=== PATIENT | male | born 1960 | race Caucasian/White ===

== ENCOUNTER → 2017-04-28 | Outpatient (CLI) | payer OTHER | LOC: COL.RAD 07:30 | DX: M47.27 Other spondylosis with radiculopathy, lumbosacral region (principal); M46.1 Sacroiliitis, not elsewhere classified; Z98.1 Arthrodesis status ==

== ENCOUNTER 2023-10-22 07:30 | Day surgery (SDC) | payer MEDICARE ==
[2023-10-22] VITALS (14 sets, daily range): BP systolic 96–157; BP diastolic 58–86; PULSE 62–83; TEMP 97.2–98.3
[~2023-10-22] VITALS: Ht 170.2 cm; Wt 100.8 kg
[2023-10-22 06:43] LABS: HEMATOCRIT 43.7 % (42.0-52.0); HEMOGLOBIN 14.6 g/dl (13.5-18.0); MEAN CELL VOLUME 95 fl (80.0-100.0); MEAN CORPUSCULAR HEMOGLOBIN 32 pg (27-31); MEAN CORPUSCULAR HGB CONC 33 g/dl (33.0-37.0); MEAN PLATELET VOLUME 10.7 fl (7.4-10.4); PLATELET COUNT 305 K/mm3 (130-400); RED BLOOD COUNT 4.62 M/mm3 (4.20-5.60); REDCELL DISTRIBUTION WIDTH-CV 13.7 % (11.5-14.5)
[2023-10-22 07:13] LABS: ALBUMIN 3.8 g/dL (3.4-4.8); BILIRUBIN,TOTAL 0.6 mg/dL (0.2-1.2); CALCIUM 9.7 mg/dL (8.4-10.2); CREATININE, serum 1.24 mg/dL (0.72-1.25); POTASSIUM 4.3 mEq/L (3.5-4.5); TOTAL PROTEIN 6.9 g/dl (6.2-8.1)
[~2023-10-22 07:30] MED LIST: AMBIEN 10MG10 MG PO; AMITRIPTYLINE H50 M1 PO; HYDROmorphone 1 MG/1 ML SYRINGE [PACU/SDC ONLY] IV PRN; IMDUR 30MG30 MG/TAB PO; LR 1,000 ML IV SCH; Meperidine 50 MG/ML 1 ML VIAL IV PRN; NEURONTIN600 MG/TAB PO; NS 10 ML IV ONE; Ondansetron 4 MG/2 ML VIAL IV PRN; Ondansetron 4 MG/2 ML VIAL ONE; PLAVIX 75MG TAB75 MG PO; TOPROL XL 25MG25 MG PO; ZANAFLEX 4MG TAB4 MG PO; dexAMETHasone 10 MG/ML VIAL ONE; droPERidol 2.5 MG/ML 2 ML VIAL IV PRN; fentaNYL 50 MCG/ML 1 ML SYRINGE/VIAL [PACU/SDC ONLY] IV PRN; fentaNYL 50 MCG/ML 2 ML VIAL ONE; hydrALAZINE 20 MG/ML 1 ML VIAL IV PRN
[2023-10-22] MEDS ORDERED: Iohexol 300 - 10 ML VIAL URETER-B ONE (07:40)
[2023-10-22] MEDS ORDERED: Naloxone 0.4 MG/ML VIAL IV PRN (07:45)
[2023-10-22] MEDS ORDERED: Magnes Hydrox (MOM) 80 MG/ML 30 ML CUP PO PRN (07:45)
[2023-10-22] MEDS ORDERED: NS Irrig Soln 3000 ML SOLN IR PRN (07:45)
[2023-10-22] MEDS ORDERED: Ondansetron 4 MG/2 ML VIAL IV PRN (07:45)
[2023-10-22] MEDS ORDERED: Hyoscyamine 0.125 MG Sublingual TAB SL PRN (07:45)
[2023-10-22] MEDS ORDERED: Rocuronium 50 MG/5 ML Multi-Dose VIAL ONE (07:49)
[2023-10-22] MEDS ORDERED: Lidocaine 2% (20 MG/ML) 20 ML UROJET UR ONE (08:10)
[2023-10-22] MEDS ORDERED: Docusate Sodium 100 MG CAP PO SCH (09:00)
[2023-10-22] MEDS ORDERED: 1/2 NS & 20 mEq KCl 1,000 ML IV SCH (09:00)
[2023-10-22] MEDS ORDERED: Isosorbide Mononitrate CR (24-HR) 30 MG TAB PO SCH (09:00)
[2023-10-22] MEDS ORDERED: tiZANidine 4 MG TAB PO SCH ×3 (09:00→14:45)
--- NOTE | 2023-10-22 09:31 | NUR ---
PT TO ROOM 329 FOLLOWING TURBT PROCEDURE. VSS. ORIENTED TO ROOM AND CALL LIGHT SYSTEM. ALL QUESTIONS ANSWERED. HEAD TO TOE ASSESSMENT COMPLETE. [address] [place] IN PLACE. CONTINUOUS BLADDER IRRIGATION RUNNING SLOW. OUTPUT LIGHT PINK WITH NO CLOTS. PT STATES HE HAS CHRONIC PAIN IN HIS LEGS AND BACK. GIVEN JELLO AND WILL ADVANCE DIET TOLERATED. CALL LIGHT WITHIN REACH. NO FURTHER NEEDS.
[2023-10-22] MEDS ORDERED: Gabapentin 300 MG CAP PO SCH ×2 (14:45→20:00)
--- NOTE | 2023-10-22 15:02 | NUR ---
PT RATED PAIN 8/10 LOCATED IN ABDOMEN. STATED IT FEELS LIKE CRAMPING. GIVEN PRN NORCO. DENIED OTHER NEEDS. CALL LIGHT WITHIN REACH.
--- NOTE | 2023-10-22 15:53 | NUR ---
PT EDUCATION AND DISCHARGE INSTRUCTIONS PROVIDED TO PT. INSTRUCTED TO CALL WITH INSURANCE INFORMATION WHEN RECEIVED. PT VERBALIZED UNDERSTANDING AND DENIED FURTHER QUESTIONS. IV TO RIGHT ANTECUBITAL DISCONTINUED. NO FURTHER NEEDS.
[2023-10-22] MEDS ORDERED: Amitriptyline 50 MG TAB PO SCH (18:00)
[2023-10-22] MEDS ORDERED: Melatonin 3 MG TAB PO PRN (21:00)
--- NOTE | 2023-10-22 21:00 | NUR ---
PT A&O X4 LAYING IN BED. VSS. [place] TO DD WITH CBI RUNNING AT SLOW RATE WITH YELLOW OUTPUT. PT REPORTING BACK PAIN & SOME BLADDER SPASMS BUT DENIES THE NEED FOR PRN MEDICATIONS OFFERED. INT TO LEFT WRIST PATENT. PT DENYING FURTHER NEEDS. CALL LIGHT IN REACH
[2023-10-23] VITALS (7 sets, daily range): BP systolic 95–115; BP diastolic 55–72; PULSE 70–74; TEMP 97.5–97.6
--- NOTE | 2023-10-23 06:08 | NUR ---
PT RESTING IN BED WITH UNLABORED RESP. CBI RUNNING AT SLOW RATE WITH PALE YELLOW OUTPUT, A FEW SMALL CLOTS NOTED. PT REPORTS BACK PAIN BUT REFUSES PRN PAIN MEDICATIONS. DENYING OTHER NEEDS. CALL LIGHT IN REACH
--- NOTE | 2023-10-23 08:51 | NUR ---
PT ALERT AND RESTING IN BED. MEDS GIVEN PER ORDER. PT STATES THAT HE HAS CHRONIC PAIN IN HIS NECK/BACK. PT BELIEVES THAT DURING SURGERY HIS NECK WAS POSITIONED UNCOMFORTABLY CAUSING MORE PAIN POST OP. HEAD TO ASSESSMENT COMPLETE. PLAN TO P&P LATER TODAY. CALL LIGHT WITHIN REACH. NO FUTHER NEEDS.
--- NOTE | 2023-10-23 09:56 | NUR ---
PT PRIME AND PULLED. 30 CC FROM [facility].
--- NOTE | 2023-10-23 09:56 | NUR ---
PT EDUCATED ON 6 CUP ROUTINE.
--- NOTE | 2023-10-23 11:02 | NUR ---
conveyor line bakery worker met with pt to discuss discharge planning. He reports to live alone in [place], [place]. He sees someone at [facility] and obtains medications from there or [facility] pharmacy with no issues. He reports to be independent with [employer] and uses no DME. He has a [employer]PO[employer]-[facility] listing his friend, Margarita Arellano [phone] and reports she has a copy. He is hopeful to discharge home today. Discharge Plan: home
--- NOTE | 2023-10-23 13:57 | NUR ---
INT TO LEFT WRIST DISONCTINUED. DISCHARGE EDUCATION AND INSTRUCTIONS GIVEN TO PATIENT. PT VERBALIZED UNDERSTANDING. ALL QUESTIONS ANSWERED. PT CURRENTLY WAITING FOR HIS RIDE HOME. CALL LIGHT WITHIN REACH. NO FURTHER NEEDS.
--- NOTE | 2023-10-23 14:58 | NUR ---
D: Senior Director stopped by room on rounds A: Pt was resting and content. No needs right now. P: Senior Director informed pt that if he needed anything from the dry transfer man area to let his nurse know. Senior Director will follow up as needed.
== END 2023-10-23 14:26 | disposition home or self-care (01) ==
LOC: SURG 07:30 → SDCO 07:30 → SURG 09:10 → SDCO 10-23 14:26
PROVIDERS: Nurse Anesthetist, Certified Registered
DX: C67.9 Malignant neoplasm of bladder, unspecified (principal)
CPT/HCPCS: OP; J0690; J1100; J2405; J2704; J3010; J3480; J7120; Q9967